=== PATIENT | female | born 1955 | race Caucasian/White ===

== ENCOUNTER 2021-04-19 14:06 | Outpatient (REF) | payer MEDICARE, SELFPAY ==
--- NOTE | ~2021-04-19 | CT_ITS ---
EXAMINATION: CT CHEST SCREENING CLINICAL INFORMATION: Nicotine dependence. COMPARISON: CT chest 12/22/2019 and 08/20/2018. TECHNIQUE: Multidetector volumetric CT imaging of the chest was performed without contrast using low-dose technique. Additional 2D coronal and sagittal reformatted images and axial 3D maximum intensity projection (MIP) images were generated on the CT workstation. This CT examination was performed using dose optimization techniques as appropriate, variously including the following: *Automated exposure control *Adjustment of mA and/or kV according to patient size (this includes techniques or standardized protocols for targeted exams where dose is matched to indication/reason for exam; i.e. extremities or head) *Use of iterative reconstruction technique DLP: 194 mGy-cm FINDINGS: LUNGS: There is bilateral centrilobular emphysema without acute pneumonic process. No pulmonary nodule, mass or ground-glass density is seen. There is bilateral minimal apical parenchymal scarring and pleural thickening. The previously visualized 3 mm intrabronchial nodule in the left lower lobe on the previous CT chest 08/20/2018 (axial image 263/5) has resolved. MEDIASTINUM: The thyroid lobes are symmetric and normal. The central trachea and the bronchi are widely patent. The heart size and the great vessels are normal caliber. There is no pericardial effusion. No abnormal-sized mediastinal or hilar lymph nodes. There are trace coronary artery calcifications present. PLEURA: There is no pleural effusion. No pleural mass or thickening. AXILLAE: There are small shotty lymph nodes seen in the bilateral axillae. UPPER ABDOMEN: The visualized liver, spleen and bilateral adrenal glands are unremarkable. OSSEOUS STRUCTURES: There is mild spondylosis seen throughout the dorsal spine. No lytic or sclerotic process. CT/CT lung screening IMPRESSION: Emphysema with bilateral apical pleural thickening and parenchymal scarring. The previously seen 3 mm intrabronchial pulmonary nodule is not seen at this time. There are no new nodules seen. ASSESSMENT: Lung-RADS category 2: Benign RECOMMENDATION: Low-dose annual CT chest screening.
== END 2021-04-19 14:07 | disposition home or self-care (01) ==
LOC: HO.CT 14:06
PROVIDERS: PCP Internal Medicine; Visit Provider Physician Assistant Medical
DX: Z12.2 Encounter for screening for malignant neoplasm of respiratory organs (principal); F17.210 Nicotine dependence, cigarettes, uncomplicated
CPT/HCPCS: 71271

== ENCOUNTER 2023-11-18 15:14 | Outpatient (REF) | payer MEDICARE, SELFPAY ==
--- NOTE | ~2023-11-18 | CT_ITS ---
EXAMINATION: CT LOW-DOSE SCREENING CHEST WITHOUT CONTRAST CLINICAL INFORMATION: Nicotine dependence, cigarettes, uncomplicated. The patient is a current smoker with a 48 pack-year history of smoking. COMPARISON: CT chest 04/19/2021. X-ray chest 06/27/2012. TECHNIQUE: Multidetector volumetric CT imaging of the chest is performed on a Siemens SOMATOM Definition scanner without contrast using low dose technique. Additional 2D coronal and sagittal reformatted images and axial 3D maximum intensity projection (MIP) images are generated on the CT workstation. This CT examination was performed using dose optimization techniques as appropriate, variously including the following: *Automated exposure control. *Adjustment of mA and/or kV according to patient size (this includes techniques or standardized protocols for targeted exams where dose is matched to indication/reason for exam; i.e. extremities or head). *Use of iterative reconstruction technique. TOTAL EXAM DLP: 39 mGy-cm. CTDIvol: 1.21 mGy. FINDINGS: PULMONARY NODULES: 2 mm nodule in the right lower lobe is unchanged (5:299 compare prior 5:299). No new, increasing-sized or suspicious lung nodule is seen. LUNGS: Lungs bilaterally symmetrically expanded. There is lyubnand-yi-dofsji emphysema along with mild bronchial thickening. No effusion or pneumothorax. Central airways patent. MEDIASTINUM: 1.2 cm pretracheal lymph node present but no mediastinal, hilar or axillary adenopathy or free fluid collection. CORONARY ARTERY CALCIFICATION: Mild. THYROID GLAND: Unremarkable to the extent seen. CARDIOVASCULAR STRUCTURES: Aortic and heart size normal. No pericardial effusion. CHEST WALL/AXILLA: Unremarkable. Mildly prominent axillary lymph nodes again noted without adenopathy. UPPER ABDOMEN: Included portions of the solid organs in the upper abdomen unremarkable on noncontrast imaging. OSSEOUS STRUCTURES: No suspicious focal findings. CT/CT lung screening IMPRESSION: 1. No evidence of pulmonary malignancy. 2. Pbcflwta-fx-kaklbe emphysema. 3. Incidental findings (s category): No significant incidental findings. ASSESSMENT: 1. Lung-RADS Category 2: Benign appearance or behavior of nodules. N/A. RECOMMENDATION: Continued routine annual low-dose CT lung screening in 1 year is recommended. An order for CT CHEST LOW DOSE CANCER SCREENING ([id number]) can be placed.
== END 2023-11-18 15:15 | disposition home or self-care (01) ==
LOC: HO.CT 15:14
PROVIDERS: PCP Internal Medicine; Visit Provider Physician Assistant Medical
DX: Z12.2 Encounter for screening for malignant neoplasm of respiratory organs (principal); F17.210 Nicotine dependence, cigarettes, uncomplicated
CPT/HCPCS: 71271

== ENCOUNTER 2025-01-05 12:12 | Outpatient (REF) | payer MEDICARE, SELFPAY ==
--- NOTE | ~2025-01-05 | CT_ITS ---
EXAMINATION: CT LOW-DOSE SCREENING CHEST WITHOUT CONTRAST CLINICAL INFORMATION: 70-year-old female, current smoker, 50 pack years, lung cancer screening. COMPARISON: 11/18/2023, 04/19/2021. TECHNIQUE: Multidetector volumetric CT imaging of the chest is performed on a Siemens SOMATOM Definition scanner without contrast using low dose technique. Additional 2D coronal and sagittal reformatted images and axial 3D maximum intensity projection (MIP) images are generated on the CT workstation. This CT examination was performed using dose optimization techniques as appropriate, variously including the following: *Automated exposure control *Adjustment of mA and/or kV according to patient size (this includes techniques or standardized protocols for targeted exams where dose is matched to indication/reason for exam; i.e. extremities or head) *Use of iterative reconstruction technique FINDINGS: PULMONARY NODULES: 2 mm nodule right lower lobe, unchanged (series 5, image 94). No new or enlarging pulmonary nodules. LUNGS: There is moderate centrilobular emphysema, with upper lobe predominance. Lungs well aerated without consolidations or interstitial abnormalities. Small airways are normal without significant thickening. No pleural effusion or pneumothorax. MEDIASTINUM: Normal thyroid. Aorta is normal in caliber with mild atheromatous calcification. Main pulmonary artery is normal in caliber. Heart size is normal. No pericardial effusion. Esophagus is normal. There is a small type I hiatus hernia. No adenopathy or mass. CORONARY ARTERY CALCIFICATION: Mild three-vessel coronary calcification. CHEST WALL/AXILLA: No adenopathy or mass. UPPER ABDOMEN: The imaged upper abdominal contents appear normal. OSSEOUS STRUCTURES: No suspicious lytic or blastic bone lesion. CT/CT lung screening IMPRESSION: 1. Stable 2 mm nodule right lower lobe. No new or enlarging pulmonary nodules. 2. Moderate centrilobular emphysema. 3. No active lung disease. ASSESSMENT: 1. Lung-RADS Category 2: Benign appearance or behavior of nodules. 2. Lung-RADS Category S: None. RECOMMENDATION: Continued routine annual low-dose CT lung screening in 1 year is recommended. An order for CT CHEST LOW DOSE CANCER SCREENING ([id number]) can be placed. Electronically signed by: Cody Jeronimo MD 01/05/2025 01:16 PM EDT
--- OUTSIDE RECORDS SUMMARY | 2025-01-05 12:55 | XMS_ITS | Clinical Summary ---
Author Organization [facility] Address [address] [place] [id number] Phone Care Team Providers Care Draftsperson Name Role Phone Иван Perera MD Primary Care Provider Allergies Active Allergy Reactions Criticality Noted Date Comments Blue Dye 06/11/2012 Ciprofloxacin Hcl Rash Low 01/31/2015 Eggshell Membrane 06/11/2012 Imipramine Hcl Palpitations Low 10/11/2016 Nefazodone Other (See Comments) Medium 10/11/2016 Severe Flushing Severe flushing Medications insulin glargine (LANTUS) 100 unit/mL injection vial Inject 17 Units under the skin. Active HUMALOG KWIKPEN INSULIN 100 unit/mL kwikpen INJECT 2-4 UNITS SUBCUTANEOUSLY THREE TIMES A DAY WITH MEALS 2 9 Active levothyroxine (SYNTHROID, LEVOTHROID) 88 MCG tablet Take 88 mcg by mouth daily. 2 8 Active omeprazole (PRILOSEC) 20 MG capsule Take 20 mg by mouth. Active amitriptyline (ELAVIL) 10 MG tablet Take 20 mg by mouth nightly at bedtime. Active RED YEAST RICE EXTRACT, BULK, MISC Take 2 capsules by mouth. Active aspirin, bulk, 100 % Powd 162 mg. Active chlordiazePOXI DE (LIBRIUM) 10 MG capsule Take 10 mg by mouth. Active atenolol (TENORMIN) 25 MG tablet Take 12.5 mg by mouth. Active multivitamin (MULTIPLE VITAMINS) per tablet Take 1 tablet by mouth. Active cholecalcifero l (VITAMIN D3) 2,000 unit capsule Take 1,000 Units by mouth. Active enalapril (VASOTEC) 2.5 MG tablet Take 2.5 mg by mouth daily. 1 9 Active aspirin 81 MG EC tablet Take 81 mg by mouth daily. Active lisinopril (PRINIVIL,ZEST RIL) 10 MG tablet Take 10 mg by mouth daily. Active estradioL (CLIMARA) 0.05 mg/24 hrIndications: Menopause syndrome Place 1 patch onto the skin once a week. 12 patch 5 0 Active Active Problems Problem Noted Date Diagnosed Date Menopause syndrome 09/08/2018 Women's annual routine gynecological examination 09/08/2018 Family History Medical History Relation Comments Lung cancer Father Alzheimer's disease Mother Hypertension Mother Thyroid disease Mother Autoimmune disease Sister Liver cancer Sister Lupus Sister Osteoporosis Sister Thyroid disease Sister Relation Status Comments Father Mother Sister Social History Tobacco Use Types Packs/Day Years Used Date Smoking Tobacco: Every Day Cigarettes Smokeless Tobacco: Never Comments:15 cigs daily Alcohol Use Standard Drinks/Week Comments Never 0 (1 standard drink = 0.6 oz pur e alcohol) Education Answer Date Recorded Are you interested in more education? Not on yarelis e 10/04/2022 Are you concerned about learning? Not on file 10/04/2022 No 10/04/2022 No 10/04/2022 Digital Access Answer Date Recorded No 11/02/2022 No 11/02/2022 No 11/02/2022 Reliable internet access at home? Not on file 11/02/2022 Device with a working camera? Not on file Comments No Sex and Gender Information Value Date Recorded Sex Assigned at Not on file Legal Sex Female 4:00 PM EST Gender Identity Not on file Sexual Orientation Not on file Last Filed Vital Signs Vital Sign Reading Time Taken Comments Blood Pressure 110/70 01/20/2020 2:45 PM EDT Pulse - - Temperature - - Respiratory Rate - - Oxygen Saturation - - Inhaled Oxygen Concentration - - Weight 70.8 kg (156 lb) 01/20/2020 2:45 PM EDT w ith shoes Height 152.4 cm (5') 01/20/2020 2:45 PM EDT with shoes Body Mass Index 30.47 01/20/2020 2:45 PM EDT Plan of Treatment Health Maintenance Due Date Last Done Comments Adult Td,Tdap Booster 1953 CREATININE LEVEL 1953 LIPID PANEL 1953 POTASSIUM LEVEL 1953 TSH LEVEL 1953 DEPRESSION SCREENING 1965 SMOKING Hx and SMOKELESS TOBACCO SCREENING 1966 HEPATITIS C SCREENING 1971 COLOGUARD 1998 COLONOSCOPY 1998 COLORECTAL CANCER SCREENING 1998 FIT TEST 1998 FOBT 1998 SIGMOIDOSCOPY 1998 VIRTUAL COLONOSCOPY 1998 ZOSTER VACCINES (1 of 2) 2003 OSTEOPOROSIS SCREENING INITI AL (ONE-TIME) 2018 PNEUMOCOCCAL VACCINES (50+ years) (2 of 2 - PCV) 11/21/2020 11/22/2019 MAMMOGRAM 04/21/2022 04/21/2020, 10/16/2018 COVID-19 VACCINE (3 - 2023-2 5 season) 2024 09/28/2020, 09/07/2020 RSV VACCINE (1 - 1-dose 75+ series) 01/03/2028 HEPATITIS A VACCINES Aged Out No long er eligible based on patient's age to complete this topic HIB VACCINES Aged Out No longer eligi ble based on patient's age to complete this topic MENINGOCOCCAL VACCINES (ACWY) Aged Out No longer eligible based on patient's age to complete this topic MENINGOCOCCAL VACCINES (B) Aged Out N o longer eligible based on patient's age to complete this topic Medical Devices Not on file Procedures Procedure Name Priority Date/Time Associated Diagnosis Comments MAMMOGRAPHY Routine 04/21/2020 from Last 3 Months or Most Recently Relevant to Health Maintenance Results * MAMMOGRAPHY FOR RESULT ENTRY ONLY (04/21/2020) Wilfred Barone MD HEALTH MAINTENANCE Final Result from Last 3 Months or Most Recently Relevant to Health Maintenance Insurance [address] [place] [address] AAR MEDICARE REPLACEMENT MEDICARE REPLACEMENT [facility] MEDICARE REPLACEMENT [place] [address] MEDICARE REPLACEMENT MEDICARE REPLACEMENT [address] [place] [address] [place] [address] MEDICARE REPLACEMENT MEDICARE REPLACEMENT MEDICARE REPLACEMENT Care Teams Draftsperson Relationship Specialty Start Date End Date Иван Perera MD PCP - General Internal Medicine 09/08/18 Additional Source Comments The information contained in this document represents components of the legal health record. It is not the complete legal health record.[facility]
== END 2025-01-05 12:13 | disposition home or self-care (01) ==
LOC: HO.CT 12:12
PROVIDERS: PCP Internal Medicine; Visit Provider Physician Assistant Medical
DX: Z12.2 Encounter for screening for malignant neoplasm of respiratory organs (principal); F17.210 Nicotine dependence, cigarettes, uncomplicated
CPT/HCPCS: 71271

== ENCOUNTER → 2025-01-05 12:14 | Outpatient (BNV) | payer MEDICARE, SELFPAY | PROVIDERS: PCP Internal Medicine; Visit Provider Radiology Diagnostic Radiology | DX: F17.210 Nicotine dependence, cigarettes, uncomplicated (principal) | CPT/HCPCS: 71271 ==